=== PATIENT | female | born 1945 | race Caucasian/White ===

== ENCOUNTER 2023-04-25 15:10 | Observation (INO) | payer MEDICARE, SELFPAY ==
[2023-04-25] VITALS (14 sets, daily range): BP systolic 113–169; BP diastolic 52–72; PULSE 45–60; RESP 16–20; TEMP 36.3–37.1; O2SAT 96–98; BMI 36.0
--- NOTE | ~2023-04-25 | CT_ITS ---
EXAMINATION: CTA brain carotid DATE: 04/25/2023 15:41 INDICATION: Right hemiparesis. Slurred speech. TECHNIQUE: Computed tomographic angiography (CTA) of the head was performed without and with 100 mL O mnipaque-350 intravenous contrast. CTA of the neck was performed with intravenous contrast. Automated exposure control and iterative reconstruction technique were employed. The dose-length product was 1 656.54 mGy-cm. Maximum intensity projection and volume rendered 3D-reconstructions were created by charisma jimenez technologist on a separate workstation. COMPARISON: None. FINDINGS: HEAD CTA: There are scattered areas of low attenuation in the cerebral white matter. There is no intr acranial hemorrhage, acute infarction, or abnormal intracranial mass lesion. The ventricles are alisia l in size. There are likely changes of ocular lens replacement surgeries. There is mild mucosal thick ening in the paranasal sinuses. The mastoid air cells are normal. Right vertebral artery artery is do minant. There is no significant stenosis of basilar artery or the posterior cerebral arteries. There is no significant stenosis of intracranial internal carotid arteries or anterior or middle cerebral a rteries. Anterior communicating artery is normal. The posterior communicating arteries are normal. Th ere is no aneurysm. NECK CTA: There are no pathologically enlarged lymph nodes. There is no significant stenosis of the w rist. There is plaque in the proximal internal carotid arteries. There is 0% stenosis of the proxima l right internal carotid artery relative to normal distal artery lumen diameter (NASCET criteria). Th ere is 0% stenosis of the proximal left internal carotid artery relative to normal distal artery lume n diameter. There is mild cervical spondylosis. There is mild chronic anterior wedging of T2, T3, and T4 vertebral bodies. IMPRESSION: 1. Mild nonspecific cerebral white matter disease, which likely represents chronic small vessel ische arturo disease. 2. No aneurysm or significant intracranial arterial stenosis. 3. 0% stenosis of the proximal internal carotid arteries relative to normal distal artery lumen diame ters (NASCET criteria). Reviewed, dictated and finalized at location E. IMPRESSION: 1. Mild nonspecific cerebral white matter disease, which likely represents head athletic trainer/strength coach isak small vessel ischemic disease. 2. No aneurysm or significant intracranial arterial stenosis. 3. 0% stenosis of the proximal internal carotid arteries relative to normal dis letha artery lumen diameters (NASCET criteria).
--- NOTE | ~2023-04-25 | MR_ITS ---
EXAMINATION: MR brain/brain stem wo/w con DATE: 04/26/2023 11:47 INDICATION: Transient ischemic attack. TECHNIQUE: Magnetic resonance imaging (MRI) of the brain and brainstem was performed without and with 18 mL MultiHance intravenous contrast. COMPARISON: Head CT 04/25/2023 FINDINGS: There is no intracranial hemorrhage, acute infarction, or abnormal intracranial mass lesion . There are scattered areas of nonspecific increased T2-weighted signal intensity in the cerebral whi te matter. The ventricles are normal in size. There are likely changes of ocular lens replacement brook geries. There is mild mucosal thickening in the paranasal sinuses. The mastoid air cells are normal. IMPRESSION: 1. Mild nonspecific cerebral white matter disease, which likely represents chronic small vessel ische arturo disease. Reviewed, dictated and finalized at location E. IMPRESSION: 1. Mild nonspecific cerebral white matter disease, which likely represents psychiatric clinical nurse specialist isak small vessel ischemic disease.
--- NOTE | ~2023-04-25 | XR_ITS ---
EXAMINATION: XR chest 1V portable DATE: 04/25/2023 15:52 INDICATION: Cerebral vascular accident. TECHNIQUE: A single frontal view of the chest was obtained. COMPARISON: None. FINDINGS: Per B lines are noted, consistent mild pulmonary edema. No pleural effusion or pneumotho rax. Cardiomegaly is noted. IMPRESSION: 1. Mild pulmonary edema. 2. Cardiomegaly. Reviewed, dictated and finalized at location E.
--- NOTE | 2023-04-25 15:23 | PC.NURSE ---
Dr. Moreira calling code stroke. Code stroke broadcasted. Patient to CT at this time.
--- NOTE | 2023-04-25 15:23 | PC.NURSE ---
last normal pt seen was at around 11:30am
--- NOTE | 2023-04-25 15:24 | ECG_ITS ---
Measurements Intervals [place] Rate: 46 P: 17 CA: 150 QRS: 14 QRSD: 105 T: 48 QT: 501 QTc: 439 Interpretive Statements SINUS BRADYCARDIA ST DEVIATION AND MODERATE T-WAVE ABNORMALITY, CONSIDER ANTEROLATERAL ISCHEMIA [-0.1+ mV T WAVE IN V3-V6] ABNORMAL ECG NO PREVIOUS ECG AVAILABLE FOR COMPARISON Electronically Signed On 04-26-2023 10:02:14 CDT by Endy Knight M.D.
--- NOTE | 2023-04-25 15:28 | ED.NEUROSD ---
HPI - Neuro Symptoms/Deficit General Chief Complaint: Weakness Stated Complaint: lethargic Time Seen by Provider: 04/25/23 15:15 History of Present Illness HPI Narrative: Patient is a 78 year old female here with generalized weakness. She notes that this morning she felt okay, sometime this afternoon she started having some difficulty talking and falling to the left side. Family at bedside believes she was last normal around 11:30 AM however they are somewhat inconsistent with this timeline stating they saw her at both 7 am and 10 am and are unsure of how she was. Patient notes she has good days and bad days at baseline and can have some gait unsteadiness. She does note that she took her antianxiety medication as well as a muscle relaxer tizanidine around 10:30 AM. She denies chest pain or shortness of breath. No headache. Related Data Home Medications Medication Instructions Recorded Confirmed amlodipine 10 mg tablet 10 mg PO QAM 04/25/23 04/25/23 atorvastatin 80 mg tablet 80 mg PO QAM 04/25/23 04/25/23 clonazepam 0.5 mg tablet 0.25 mg PO Q12H 04/25/23 04/25/23 doxazosin 2 mg tablet 2 mg PO HS 04/25/23 04/25/23 ezetimibe 10 mg tablet 10 mg PO DAILY 04/25/23 04/25/23 fluoxetine 40 mg capsule 40 mg PO DAILY 04/25/23 04/25/23 fluticasone propionate 50 2 spray intranasal DAILY 04/25/23 04/25/23 mcg/actuation nasal spray,suspension isosorbide mononitrate 30 mg 30 mg PO DAILY 04/25/23 04/25/23 tablet,extended release 24 hr losartan 50 mg tablet 50 mg PO DAILY 04/25/23 04/25/23 metoprolol succinate 25 mg 25 mg PO DAILY 04/25/23 04/25/23 tablet,extended release 24 hr omeprazole 20 mg capsule,delayed 20 mg PO BID 04/25/23 04/25/23 release tizanidine 4 mg tablet 4 mg PO Q8H PRN muscle spasms 04/25/23 04/25/23 triamcinolone acetonide 0.1 % 1 applic topical BID PRN itching 04/25/23 04/25/23 topical cream Allergies Allergy/AdvReac Type Severity Reaction Status Date / Time No Known Allergies Allergy Verified 04/25/23 15:15 Review of Systems Review of Systems: All systems reviewed & are unremarkable except as noted in HPI and below PMFSH Family History Family History (Updated 04/25/23 @ 19:06 by Jose Enrique Kurtz RN) Father Cerebrovascular accident Mother Acute myocardial infarction Social History Social History (Updated 04/25/23 @ 16:41 by Sherie Lester PA-C) Social History: Surrogate medical decision maker: Code status: Full code. Smoking status: Never smoker Alcohol intake: never Substance use: never Lack of Transportation: No Lack of Food: Never True Current Housing: I Have Housing Concerned About Future Housing: No Difficulty Paying Gas/Electric Bills: No Difficulty Paying for Meds: No Currently Unemployed: No Education: Associate Degree Difficulty w/ Childcare or Family Care: No Spiritual care concerns: No Exam Narrative: GENERAL: Well-appearing, well-nourished, and in no acute distress. HEAD: Normocephalic, atraumatic. EYES: PERRLA and EOMI. ENT: Nares clear. Mucous membranes moist. Right sided partial flattening of the nasolabial fold NECK: Supple. CHEST: Clear to auscultation. No respiratory distress. HEART: bradycardia and regular rhythm. Normal peripheral pulses. ABDOMEN: Soft, nontender, nondistended. EXTREMITIES: Normal range of motion. No edema. SKIN: Warm, dry, no rash. NEURO: Dysarthria present. No upper or lower extremity drift. Global weakness present. Alert and oriented x3. PSYCH: Normal mood and affect. Course Course Emergency Course: Patient seen and evaluated at bedside. Neuro exam is largely global however per family she does have a new facial droop as well as some dysarthria. Initial quick NIH at bedside is 2. Patient made a stroke alert after initial evaluation. Her LKN is 11:30 AM today however family is inconsistent with timeline. Will take patient for CT, CTA. She is additionally bradycardic on exam with HR in the 40s-50s and she
[2023-04-25 15:34] LABS: Basophils Percent Auto 0.3 % (0.2-1.2); Eosinophils Absolute Auto 0.3 K/mm3 (0-0.3); Eosinophils Percent Auto 3.5 % (0-4.4); Glucose Point of Care 132 mg/dl (65-105); Hematocrit 39.7 % (37.0-47.0); Hemoglobin 12.5 g/dL (12.0-15.0); Immature Granulocyte Absolute 0.02 K/mm3 (0.00-0.031); Immature Granulocyte Percent A 0.2 % (0-0.5); Lymphocytes Absolute Auto 2.74 K/mm3 (0.9-3.2); Lymphocytes Percent Auto 29.7 % (18.3-44.2); Mean Corpuscular HGB Conc 31.5 g/dl (32-36); Mean Corpuscular Hemoglobin 29.8 pg (26-34); Mean Corpuscular Volume 94.7 fl (80-100); Mean Platelet Volume 10.8 fl (7.4-10.4); Monocytes Absolute Auto 0.8 K/mm3 (0.1-0.6); Monocytes Percent Auto 8.1 % (2.6-8.5); Neutrophils Absolute Auto 5.4 K/mm3 (1.3-6.7); Neutrophils Percent Auto 58.2 % (45.5-73.1); Platelet Count Result 223 k/mm3 (150-375); Red Blood Count 4.19 M/mm3 (4.2-5.4); Red Cell Distribution Width 12.6 % (11.5-14.5); White Blood Count 9.2 K/mm3 (4.5-10.0)
[2023-04-25 15:42] LABS: Estimated CRCL calculation 46 ml/min; Estimated Glomerular Filt Rate > 60
[2023-04-25 15:43] LABS: Alanine Aminotransferase 23 U/L (6-35); Albumin Level 3.4 g/dL (3.5-5.1); Alkaline Phosphatase 93 U/L (38-126); Anion Gap 4 mmol/L (8-16); Aspartate Amino Transferase 27 U/L (14-36); Bilirubin,Total 0.4 mg/dL (0.2-1.3); Blood Urea Nitrogen 19 mg/dL (7-17); Calcium 9.5 mg/dL (8.4-10.2); Carbon Dioxide 27 mmol/L (22-30); Chloride 102 mmol/L (98-107); Estimated CRCL calculation 51 ml/min; Estimated Glomerular Filt Rate > 60; Glucose 124 mg/dL (65-110); Potassium 3.9 mmol/L (3.4-5.0); Sodium 133 mmol/L (137-145)
[2023-04-25 15:44] LABS: Prothrombin Time 13.2 Seconds (11.1-14.7)
[2023-04-25 15:45] LABS: Partial Thromboplastin Time 26.8 SECONDS (22.3-36.8)
[2023-04-25 15:55] LABS: Troponin I < 0.012 ng/mL (0.000-0.034)
--- NOTE | 2023-04-25 16:39 | PM.IMHP ---
H&P: HPI History of Present Illness Date/Time: 04/25/23 16:40 Chief Complaint: Weakness. Narrative: This a pleasant 78-year-old female with history of hypertension, hyperlipidemia, gastroesophageal reflux disease, and anxiety presented to the emergency department via EMS from home for evaluation of weakness. The patient provides the following history. Over the past couple of months or so she has been more fatigued than usual. Today however she felt increasingly tired which she initially blamed on the fact that she and her have been traveling back and forth to [facility] a quite frequently the last several weeks as his sister has been ill. Not long prior to arrival she was baking in the kitchen when she suddenly felt extremely weak and lightheaded. She stumbled into the living room to go sit down in her chair and reports that she fell sideways into the chair. She attempted to tell her that something was wrong but she had difficulties getting the words out. She also reports having mild cold sweats with the onset of symptoms as well as heaviness and tingling in the arms. In the ED her daughter noticed that the right side of her mouth was droopy but that has since resolved. She denies syncope, headache, visual changes, current facial droop, current difficulty speaking, and difficulty swallowing. She also denies chest and pleuritic pain, racing heart, palpitations, shortness a breath, nausea, and vomiting. Her blood pressures have been stable since arrival to the ED. Her pulse however has been pretty consistently in the mid 40s which is unusual for her as her baseline heart rate is typically in the high 60s to low 70s. She has been on metoprolol for quite some time. She denies recent changes in medications. She is being admitted in this setting for close monitoring and further workup. Review of Systems Review of Systems: Twelve systems were reviewed and are negative except for as per HPI. [facility], [facility] Past Medical History Medical History (Updated 04/25/23 @ 20:42 by Sherie Lester PA-C) Anxiety Gastroesophageal reflux Hyperlipidemia Hypertension Surgical History Surgical History (Updated 04/25/23 @ 20:36 by Sherie Lester PA-C) History of appendectomy History of bilateral cataract extraction History of cholecystectomy History of hysterectomy History of tonsillectomy and adenoidectomy Family History Family History Father Cerebrovascular accident Mother Acute myocardial infarction Social History Social History (Updated 04/25/23 @ 20:37 by Sherie Lester PA-C) Social History: Surrogate medical decision maker: Ernie Rosales, spouse. Code status: Full code. Smoking status: Never smoker Alcohol intake: never Substance use: never Lack of Transportation: No Lack of Food: Never True Current Housing: I Have Housing Concerned About Future Housing: No Difficulty Paying Gas/Electric Bills: No Difficulty Paying for Meds: No Currently Unemployed: No Education: Associate Degree Difficulty w/ Childcare or Family Care: No Spiritual care concerns: No Meds Home Medications and Allergies Home Medications Medication Instructions Recorded Confirmed Type amlodipine 10 mg tablet 10 mg PO QAM 04/25/23 04/25/23 History atorvastatin 80 mg tablet 80 mg PO QAM 04/25/23 04/25/23 History clonazepam 0.5 mg tablet 0.25 mg PO Q12H 04/25/23 04/25/23 History doxazosin 2 mg tablet 2 mg PO HS 04/25/23 04/25/23 History ezetimibe 10 mg tablet 10 mg PO DAILY 04/25/23 04/25/23 History fluoxetine 40 mg capsule 40 mg PO DAILY 04/25/23 04/25/23 History fluticasone propionate 50 2 spray intranasal DAILY 04/25/23 04/25/23 History mcg/actuation nasal spray,suspension isosorbide mononitrate 30 mg 30 mg PO DAILY 04/25/23 04/25/23 History tablet,extended release 24 hr losartan 50 mg tablet 50 mg PO DAILY 04/25/23 04/25/23 History meto
[2023-04-25 18:44] LABS: Glucose Point of Care 117 mg/dl (65-105)
--- NOTE | 2023-04-25 18:55 | ADMGEN ---
This patient, Angela Rosales, was admitted to IMU Room 206-01. Patient/family oriented to hospital policies and general routines including ID bracelet, bed and alarms, visiting hours, pain management, procedures, bathroom and other care routines, personal items, smoking policy, room service/diet, and visiting hours. Information on how to activate the Rapid Response Team has been discussed. Patient/Family are encouraged to report perceived risks to care and to ask questions if they do not understand what they are told or what they should do.
[2023-04-25] MEDS: DOXAZOSIN MESYLATE 2 MG TABLET PO (22:06)
[2023-04-25] MEDS: clonazePAM (*CRX) 0.5 MG TABLET 0.25 MG PO (22:07)
[2023-04-25 23:14] LABS: Glucose Point of Care 100 mg/dl (65-105)
[2023-04-26] VITALS (18 sets, daily range): BP systolic 120–154; BP diastolic 55–73; PULSE 49–58; RESP 16–18; TEMP 36.1–36.6; O2SAT 95–100
--- NOTE | 2023-04-26 00:19 | PC.NURSE ---
This patient, Angela Rosales, was transferred to room 211 on 04/26/23 at 0015. Personal belongings sent with patient.
[2023-04-26 04:45] LABS: Hematocrit 39.1 % (37.0-47.0); Hemoglobin 12.6 g/dL (12.0-15.0); Mean Corpuscular HGB Conc 32.2 g/dl (32-36); Mean Corpuscular Hemoglobin 30.1 pg (26-34); Mean Corpuscular Volume 93.3 fl (80-100); Mean Platelet Volume 10.8 fl (7.4-10.4); Platelet Count Result 190 k/mm3 (150-375); Red Blood Count 4.19 M/mm3 (4.2-5.4); Red Cell Distribution Width 12.4 % (11.5-14.5); White Blood Count 7.7 K/mm3 (4.5-10.0)
[2023-04-26 05:01] LABS: Anion Gap 0 mmol/L (8-16); Blood Urea Nitrogen 11 mg/dL (7-17); Calcium 9.3 mg/dL (8.4-10.2); Carbon Dioxide 31 mmol/L (22-30); Chloride 104 mmol/L (98-107); Estimated CRCL calculation 59 ml/min; Estimated Glomerular Filt Rate > 60; Glucose 92 mg/dL (65-110); Magnesium 1.5 mg/dL (1.6-2.3); Potassium 3.4 mmol/L (3.4-5.0); Sodium 135 mmol/L (137-145)
[2023-04-26] MEDS: amLODIPine BESYLATE 5 MG TABLET 10 MG PO (09:09)
[2023-04-26] MEDS: FLUoxetine HCL 20 MG CAPSULE 40 MG PO (09:11)
[2023-04-26] MEDS: ATORVASTATIN 40 MG TABLET 80 MG PO (09:11)
[2023-04-26] MEDS: ASPIRIN 81 MG ENTERIC TABLET PO (09:12)
[2023-04-26] MEDS: EZETIMIBE 10 MG TABLET PO (09:12)
[2023-04-26] MEDS: ISOSORBIDE MONONITRATE 30 MG TAB.ER.24H PO (09:12)
[2023-04-26] MEDS: PANTOPRAZOLE 40 MG TABLET PO ×2 (09:13→17:11)
[2023-04-26] MEDS: LOSARTAN POTASSIUM 50 MG TABLET PO (09:13)
[2023-04-26] MEDS: FLUTICASONE PROPIONATE 0.05% NA SPR 16 GM BTL (*BKC) 2 SPRAY NASAL (09:14)
[2023-04-26] MEDS: clonazePAM (*CRX) 0.5 MG TABLET 0.25 MG PO ×2 (09:16→20:46)
--- NOTE | 2023-04-26 11:09 | PM.IMPN ---
Progress Note: A&P Assessment and Plan (1) Bradycardia: Code(s): R00.1 - Bradycardia, unspecified Status: Acute (2) Neurological symptoms: Code(s): R29.90 - Unspecified symptoms and signs involving the nervous system Status: Acute (3) Weakness: Code(s): R53.1 - Weakness Status: Acute (4) Hypertension: Code(s): I10 - Essential (primary) hypertension Status: Acute (5) Hyperlipidemia: Code(s): E78.5 - Hyperlipidemia, unspecified Status: Acute (6) Anxiety: Code(s): F41.9 - Anxiety disorder, unspecified Status: Acute Plan The patient presented to the emergency department for evaluation of weakness as per HPI. Labs, imaging, EKG, and all reports were personally reviewed. She has been more tired the last couple of months though more so today. Not long prior to arrival she suddenly felt weak and lightheaded and reports having difficulties speaking. Daughter also noticed that she had a transient drooping of the right side of her mouth. CTA of the head and neck did not show any acute findings. Brain MRI has been ordered to rule out stroke although TIA remains a possibility. Continue high-intensity statin and start aspirin 81 mg daily. Additionally she was found to be bradycardic and reports that her resting heart rate is usually in the upper 60s to low 70s. This may explain her fatigue. Metoprolol has been placed on hold. She will be monitored closely in the IMU overnight. Echocardiogram and TSH ordered for further evaluation. Her blood pressures were reviewed and they have been stable. Her home medications will be reviewed and resumed as appropriate. Subjective Date/time seen: 04/26/23 11:09 Interval history: No complaints Exam Narrative: General: Well-developed female sitting up in bed in no acute distress. Weight: 86.5 kg. BMI: 36.0. HEENT: Normocephalic, atraumatic. PERRL, EOMI. Sclera anicteric. Oral mucosa moist. Oropharynx clear. Neck: Supple. No carotid bruits. Respiratory: Lungs are clear to auscultation bilaterally. Cardiovascular: Bradycardic with normal S1-S2. Gastrointestinal: Abdomen is soft, nontender, and nondistended with positive bowel sounds. Skin: Warm and dry. No rash or lesions on limited exam. Extremities: No cyanosis, clubbing, or edema. Radial and pedal pulses intact. Neurological: Alert and oriented x4. Cranial nerves 2-12 are grossly intact. Speech is clear. No facial asymmetry. No pronator drift. Normal [id number] and rapid alternating movements. No gross focal deficits to casual conversation. Psychiatric: Pleasant and cooperative with normal mood and affect. Judgment and insight intact. Objective Data Vital Signs Vital Signs: Vital Signs - 24 hr 04/25/23 15:09 04/25/23 15:18 04/25/23 15:21 Temperature 97.9 F Pulse Rate 50 L 46 L 46 L Respiratory Rate 17 19 Blood Pressure 123/58 L 117/55 L Pulse Oximetry 97 96 Oxygen Delivery Room Air 04/25/23 16:23 04/25/23 18:01 04/25/23 18:36 Temperature 97.4 F L Pulse Rate 45 L 59 L 60 Respiratory Rate 20 18 16 Blood Pressure 113/54 L 132/72 169/70 H Pulse Oximetry 97 96 97 Oxygen Delivery 04/25/23 20:00 04/25/23 20:00 04/25/23 20:00 Temperature 98.8 F Pulse Rate 46 L 46 L 50 L Respiratory Rate 16 16 Blood Pressure 147/66 H Pulse Oximetry 98 98 Oxygen Delivery Room Air 04/25/23 21:54 04/25/23 23:20 04/25/23 23:41 Temperature 97.9 F Pulse Rate 48 L 57 L 57 L Respiratory Rate 18 18 Blood Pressure 137/52 L Pulse Oximetry 97 97 Oxygen Delivery Room Air 04/26/23 00:00 04/26/23 01:16 04/26/23 04:00 Temperature 97.3 F L Pulse Rate 50 L 49 L 49 L Respiratory Rate 16 Blood Pressure 120/73 Pulse Oximetry 97 Oxygen Delivery 04/25/23 20:50 04/25/23 20:51 04/25/23 20:52 Temperature Pulse Rate Respiratory Rate Blood Pressure 145/65 H 154/66 H 148/63 H Pulse Oximetry Oxygen Delivery
[2023-04-26] MEDS: DOXAZOSIN MESYLATE 2 MG TABLET PO (20:46)
[2023-04-27] VITALS (10 sets, daily range): BP systolic 123–156; BP diastolic 58–62; PULSE 56–73; RESP 16–18; TEMP 36.4–37.1; O2SAT 96–99
--- NOTE | 2023-04-27 | ECHO_ITS ---
Patient Info Name: Angela Rosales Age: 78 years : 1945 Gender: Female Ht: 61 in Wt: 190 lbs BSA: 1.97 m2 HR: 73 bpm BP: 139 / 60 mmHg Heart Rhythm: Bradycardia Technical Quality: Fair Exam Date: 04/27/2023 11:52 AM Exam Location: [facility] Pulmonary Patient Status: Outpatient Admit Date: 04/25/2023 Staff Ordering Physician: Sherie Lester PA-C Accounting Tutor: Addis Mercado RDCS Attending Provider: Meme Sidhu DO Referring Physician: Tayler EDWARDS; Exam Type: CA echo doppler color flow Study Info Indications - cardiomyopathy R00.1 - Bradycardia, unspecified Complete two-dimensional, color flow and Doppler transthoracic echocardiogram is performed. Summary 1. Complete two-dimensional, color flow and Doppler transthoracic echocardiogram is performed. 2. Left ventricular chamber dimension is normal. 3. Left ventricular systolic function is normal, estimated at 65-70%. 4. There is mild asymmetric septal increased left ventricular wall thickness. 5. The left ventricular diastolic function is grade I diastolic dysfunction. 6. There is no aortic valve stenosis. 7. There is trace mitral valve regurgitation. 8. There is trace tricuspid valve regurgitation. 9. Left pleural effusion. Left Ventricle Left ventricular chamber dimension is normal. Left ventricular systolic function is normal, estimated at 65-70%. There is mild asymmetric septal increased left ventricular wall thickness. The left ventricular diastolic function is grade I diastolic dysfunction. Right Ventricle Right ventricular chamber dimension is normal. Right ventricular systolic function is normal. Left Atria Left atrial chamber dimension is normal. Right Atria Right atrial chamber dimension is mildly enlarged. Aortic Valve The aortic valve is not well visualized. There is no aortic valve stenosis. There is no aortic valve regurgitation. Pulmonic Valve The pulmonic valve is not well visualized. There is trace pulmonic regurgitation. Mitral Valve The mitral valve has normal leaflets. There is trace mitral valve regurgitation. The mitral valve annulus is mildly calcified. Tricuspid Valve The tricuspid valve leaflets are normal. There is trace tricuspid valve regurgitation. No pulmonary hypertension, estimated pulmonary arterial systolic pressure is 19 mmHg. Pericardium/Pleural The pericardium appears normal. There is small pericardial effusion. Inferior Vena Cava Normal inferior vena cava with >50% collapse upon inspiration consistent with normal right atrial pressure, 5 mmHg. Aorta The aortic root size at the sinus of Valsalva is normal. There is mild aortic atherosclerosis. Left Ventricular Outflow Tract Name Value Normal LVOT 2D LVOT Diameter 2.0 cm LVOT Doppler LVOT Peak Gradient 6 mmHg LVOT Mean Gradient 3 mmHg LVOT VTI 26 cm LVOT VTI/AV VTI Ratio 0.9 LVOT Stroke Volume 84 ml LVOT CO 4.8 l/min LVOT CI 2.5 l/min/m2 Pulmonic Valve
[2023-04-27] MEDS: ISOSORBIDE MONONITRATE 30 MG TAB.ER.24H PO (08:39)
[2023-04-27] MEDS: FLUTICASONE PROPIONATE 0.05% NA SPR 16 GM BTL (*BKC) 2 SPRAY NASAL (08:39)
[2023-04-27] MEDS: LOSARTAN POTASSIUM 50 MG TABLET PO (08:39)
[2023-04-27] MEDS: PANTOPRAZOLE 40 MG TABLET PO (08:40)
[2023-04-27] MEDS: EZETIMIBE 10 MG TABLET PO (08:40)
[2023-04-27] MEDS: clonazePAM (*CRX) 0.5 MG TABLET 0.25 MG PO (08:40)
[2023-04-27] MEDS: FLUoxetine HCL 20 MG CAPSULE 40 MG PO (08:40)
[2023-04-27] MEDS: ASPIRIN 81 MG ENTERIC TABLET PO (08:41)
[2023-04-27] MEDS: amLODIPine BESYLATE 5 MG TABLET 10 MG PO (08:41)
--- NOTE | 2023-04-27 12:47 | PM.DS ---
DS: Admitting Diagnosis Discharge Date April 27, 2023 Admitting Diagnosis Possible TIA DS: Discharge Diagnosis Discharge Diagnosis (1) Bradycardia: Code(s): R00.1 - Bradycardia, unspecified Status: Acute (2) Neurological symptoms: Code(s): R29.90 - Unspecified symptoms and signs involving the nervous system Status: Acute (3) Weakness: Code(s): R53.1 - Weakness Status: Acute (4) Hypertension: Code(s): I10 - Essential (primary) hypertension Status: Acute (5) Hyperlipidemia: Code(s): E78.5 - Hyperlipidemia, unspecified Status: Acute (6) Anxiety: Code(s): F41.9 - Anxiety disorder, unspecified Status: Acute DS: Summary Hospital Course Hospital Course: Patient is 78-year-old female came in possible TIA workup was negative. MRI was also negative for acute infarct. She will continue on aspirin and statin therapy on discharge. Symptoms she was complaining of do not sound consistent with TIA. Nonetheless patient is otherwise stable vitals are stable. She can be discharged. Time Spent with Patient Time attestation: Total time spent providing and/or coordinating discharge services: Exam Narrative: General: Well-developed female sitting up in bed in no acute distress. Weight: 86.5 kg. BMI: 36.0. HEENT: Normocephalic, atraumatic. PERRL, EOMI. Sclera anicteric. Oral mucosa moist. Oropharynx clear. Neck: Supple. No carotid bruits. Respiratory: Lungs are clear to auscultation bilaterally. Cardiovascular: Bradycardic with normal S1-S2. Gastrointestinal: Abdomen is soft, nontender, and nondistended with positive bowel sounds. Skin: Warm and dry. No rash or lesions on limited exam. Extremities: No cyanosis, clubbing, or edema. Radial and pedal pulses intact. Neurological: Alert and oriented x4. Cranial nerves 2-12 are grossly intact. Speech is clear. No facial asymmetry. No pronator drift. Normal [id number] and rapid alternating movements. No gross focal deficits to casual conversation. Psychiatric: Pleasant and cooperative with normal mood and affect. Judgment and insight intact. Discharge Plan Discharge Attending physician on discharge: Murray Rodriguez Discharging Clinician: Murray Rodriguez Patient Disposition: Home, Self-Care Activity: as tolerated Diet: as tolerated Patient Instructions: Antibiotic Form Stand Alone Forms: General Discharge Information Follow-up/Referrals: Jeffrey,Alok Cassidy MD [Primary Care Provider] - Discharge Medications: Continued atorvastatin 80 mg Tablet 80 mg PO QAM tizanidine 4 mg Tablet 4 mg PO Q8H PRN (Reason: muscle spasms) clonazepam 0.5 mg Tablet 0.25 mg PO Q12H Rx Instructions: administer 30 minutes before bedtime amlodipine 10 mg Tablet 10 mg PO QAM losartan 50 mg Tablet 50 mg PO DAILY fluoxetine 40 mg Capsule 40 mg PO DAILY isosorbide mononitrate 30 mg Tablet Extended Release 24 Hr 30 mg PO DAILY triamcinolone acetonide 0.1 % Cream 1 applic TOPICAL BID PRN (Reason: itching) Rx Instructions: applies to groin and pannus omeprazole 20 mg Capsule,Delayed Release(Dr/Ec) 20 mg PO BID metoprolol succinate 25 mg Tablet Extended Release 24 Hr 25 mg PO DAILY fluticasone propionate 50 mcg/actuation [employer],Suspension 2 spray INTRANASAL DAILY Rx Instructions: administer into each nostril doxazosin 2 mg Tablet 2 mg PO HS ezetimibe 10 mg Tablet 10 mg PO DAILY Date of admission: 04/25/23 19:07 Primary Care Provider: JeffreyAlok Admitting Provider: Meme Sidhu Attending physician on admission: Meme Sidhu Condition: Stable
== END 2023-04-27 16:14 | disposition home or self-care (01) ==
LOC: ANHED 16:50 → ANHIMU 04-27 12:47
PROVIDERS: Physician Assistant; Admitting Provider Student in an Organized Health Care Education/Training Program; Emergency Provider Student in an Organized Health Care Education/Training Program; PCP Family Medicine; Visit Provider Chiropractor
DX: R00.1 Bradycardia, unspecified (principal); R29.90 Unspecified symptoms and signs involving the nervous system; I10 Essential (primary) hypertension; E78.5 Hyperlipidemia, unspecified; K21.9 Gastro-esophageal reflux disease without esophagitis; F41.9 Anxiety disorder, unspecified
CPT/HCPCS: 36415; 70496; 70498; 70553; 71045; 80048; 80053; 82948; 83735; 84443; 84484; 85025; 85027; 85610; 85730; 93005; 93306; 99285; A9270; A9577; G0378; Q9967

== ENCOUNTER 2024-11-25 10:40 | Outpatient (CLI) | payer MEDICARE, OTHER, SELFPAY ==
--- NOTE | ~2024-11-25 | MR_ITS ---
MRI of the left shoulder Technique: Axial proton-density fat-sat images, coronal proton density fat-sat and T2 fat-sat images, and sagittal T1-weighted and T2 fat-sat images were acquired. Clinical History: Osteoarthritis Findings: There is minimal AC joint degenerative change. Coracoclavicular, coracoacromial, and coraco humeral ligaments appear intact. Supraspinatus and infraspinatus tendons are intact, without partial full-thickness tear. Subscapulari s tendon intact. Tendon of the long head of the biceps is intact. There is marked deficiency of the medial aspect of the humeral head with irregular sclerosis and irre gularity of the contour adjacent to the glenohumeral joint. This could reflect chronic posttraumatic change or possibly atrophic type neuropathic joint. Appearance is essentially stable as compared to p rior chest radiograph dated 04/25/2023. There is associated severe presumed secondary, osteoarthritis of the glenohumeral joint. No fluid distention of the subacromial/subdeltoid bursa. No muscle atrophy or edema. 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 Appearance is essentially stable since 04/25/2023. Severe, presumed secondary, osteoarthritis of the glenohumeral joint. Rotator cuff is intact. Reviewed, dictated and finalized at location . 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 Appeara nce is essentially stable since 04/25/2023. Severe, presumed secondary, osteoarthritis of the glenohumeral joint. Rotator cuff is intact.
== END 2024-11-25 10:41 | disposition home or self-care (01) ==
PROVIDERS: PCP Family Medicine; Visit Provider Physician Assistant
DX: M19.012 Primary osteoarthritis, left shoulder (principal); M89.722 Major osseous defect, left humerus; M19.212 Secondary osteoarthritis, left shoulder
CPT/HCPCS: 73221